=== PATIENT | female | born 1985 | race Caucasian/White ===

== ENCOUNTER 2021-03-23 15:48 | Emergency (ER) | payer SELFPAY ==
[~2021-03-23] VITALS: Ht 172.7 cm; Wt 77.3 kg
[2021-03-23 16:11] VITALS: BP 99/67
--- NOTE | 2021-03-23 17:45 | NUR ---
in room with pt and she expresses concerns that she had to prompt doctor to look in her throat. pt informed that this rn was not in room for pa assessment but if there are any concerns she has this rn would bring them up to the provider. pt declines
[2021-03-23] MEDS ORDERED: DEXAMETHASONE 4 MG/ML, 1ML PO ONE (18:00)
--- NOTE | 2021-03-23 18:24 | NUR ---
upon reviewing dc instructions with pt and encouraging a return to the er if symptoms worsen pt reviews her paperwork and begins laughing at the hospital documentation that she should rest. pt states to this rn "this is crazy, a peice of paper telling me to rest." pt educated where discharge desk is and ambulated steady to the desk
== END 2021-03-23 18:29 | disposition home or self-care (01) ==
LOC: ED 16:00
DX: J02.0 Streptococcal pharyngitis (principal); R51.9 Headache, unspecified; R53.83 Other fatigue; R06.02 Shortness of breath
CPT/HCPCS: 71045; 99283; J1100